=== PATIENT | female | born 1940 | race Caucasian/White ===

== ENCOUNTER 2024-07-08 09:41 | Outpatient (CLI) | payer MEDICARE, BC, SELFPAY | END 2024-07-08 09:42 | disposition home or self-care (01) | LOC: INJ CL 09:46 | PROVIDERS: PCP Family Medicine; Visit Provider Family Medicine | DX: M54.16 Radiculopathy, lumbar region (principal); M51.362 Other intervertebral disc degeneration, lumbar region with discogenic back pain and lower extremity pain | CPT/HCPCS: 62323; J0702; Q9966 ==